=== PATIENT | female | born 1985 | race Caucasian/White ===

== ENCOUNTER 2017-05-06 06:00 | Outpatient (CLI) | payer OTHER | END 2017-05-06 06:10 | disposition home or self-care (01) | LOC: LAB 06:00 → ADM 07:30 → CIR.AMB 05-13 07:30 → EDSTATUS 05-13 07:30 → CIR.AMB 05-13 09:00 | DX: N84.0 Polyp of corpus uteri (principal); Z01.812 Encounter for preprocedural laboratory examination; Z01.810 Encounter for preprocedural cardiovascular examination ==

== ENCOUNTER 2018-04-08 10:15 | Inpatient (IN) | payer OTHER ==
[2018-04-08] MEDS ORDERED: TANDEM DUAL AC106 MG PO (11:19)
[2018-04-08] MEDS ORDERED: PRENATABS RX T1 EACH PO (11:19)
== END 2018-04-26 11:02 | disposition home or self-care (01) | DRG 788 ==
LOC: OB/GYN 04-23 10:15
PROVIDERS: Obstetrics & Gynecology; ADMIT Obstetrics & Gynecology Maternal & Fetal Medicine
PROC: 4A1HXCZ Monitoring of Products of Conception, Cardiac Rate, External Approach (ICD-10-PCS; 2018-04-23)
PROC: 10D00Z1 Extraction of Products of Conception, Low, Open Approach (ICD-10-PCS; principal; 2018-04-23 16:15)
DX: O34.211 Maternal care for low transverse scar from previous cesarean delivery (principal); O75.82 Onset (spontaneous) of labor after 37 completed weeks of gestation but before 39 completed weeks gestation, with delivery by (planned) cesarean section; Z3A.39 39 weeks gestation of pregnancy; Z37.0 Single live birth